=== PATIENT | male | born 1990 | race African-American/Black ===

== ENCOUNTER 2024-03-23 12:14 | Emergency (ER) | payer MEDICAID ==
[~2024-03-23] VITALS: Ht 180.3 cm; Wt 110.0 kg
[2024-03-23 12:16] VITALS: BP 147/82; PULSE 93; RESP 16; TEMP 97.6; O2SAT 99
[2024-03-23] MEDS ORDERED: LIDOCAINE HCL/EPINEPHRINE 1%-EPI 1:100,000 20ML VIAL INFIL ONE (12:45)
[2024-03-23] MEDS ORDERED: TETANUS, DIPHTHERIA, PERTUSSIS VAC/PF 0.5ML (>10YR OLD) IM ONE (12:45)
[2024-03-23] MEDS ORDERED: ACETAMINOPHEN 325MG TABLET PO ONE (12:45)
== END 2024-03-23 13:24 | disposition left against medical advice (07) ==
LOC: ER 13:21
DX: S01.511A Laceration without foreign body of lip, initial encounter (principal); Z88.0 Allergy status to penicillin; W22.8XXA Striking against or struck by other objects, initial encounter; Y93.89 Activity, other specified; Y92.89 Other specified places as the place of occurrence of the external cause; Y99.8 Other external cause status
CPT/HCPCS: 99283